=== PATIENT | male | born 1965 | race Caucasian/White ===

== ENCOUNTER 2017-02-10 09:46 | Inpatient (IN) | payer OTHER ==
[2017-02-10 10:45] VITALS: BMI 27.9
--- NOTE | 2017-02-10 13:34 | HP ---
COWS - Scale Resting Pulse: 1= [place] 81-100 Sweatin= Chills/Flushing Restless Observation: 3= Extraneous Movement Pupil Size: 2= Moderately Dilated Bone or Joint Aches: 4=Acute Joint/Muscle Pain Runny Nose/ Eye Tearin= Runny Nose/Eyes GI Upset > 30mins: 2= Nausea/Diarrhea Tremor Observation: 2= Slight Tremor Visible Yawning Observation: 2= >3x During Session Anxiety or Irritability: 2=Irritable/Anxious Goose Flesh Skin: 0=Smooth Skin COWS Score: 21 CIWA Score - CIWA Score Nausea/Vomitin-Int. Nausea w/Dry Heave Muscle Tremors: 4-Moderate,w/Arms Extend Anxiety: 4-Mod. Anxious/Guarded Agitation: 4-Moderately Restless Paroxysmal Sweats: 1-Minimal Palms Moist Orientation: 0-Oriented Tacttile Disturbances: 3-Moderate Itch/Numb/Burn Auditory Disturbances: 0-None Visual Disturbances: 0-None Headache: 1-Very Mild CIWA-Ar Total Score: 21 Admission [facility] - HPI Chief Complaint: DETOX TX FOR HEROIN AND ALCOHOL DEPENDENCE Allergies/Adverse Reactions: Allergies Allergy/AdvReac Type Severity Reaction Status Date / Time Penicillins Allergy unknown Verified 02/10/17 12:43 History of Present Illness: 51 Y/O H/M WITH A HX OF HEROIN AND ALCOHOL DEPENDENCE SEEKING DETOX TX. PT HAS MULTIPLE TX EPISODES WITH LONGEST PERIOD OF SOBRIETY OF 3 YRS WHILE IN RESIDENTIAL. OTHERWISE UNABLE TO STAY SOBER. Exam Limitations: No Limitations - Ebola screening Have you traveled outside of the country in the last 21 days: No Have you had contact with anyone from an Ebola affected area: No Have you been sick,other than usual withdrawal symptoms: No Do you have a fever: No - Review of Systems Constitutional: Chills, Loss of Appetite, Night Sweats, Changes in sleep, Unintentional Wgt. Loss EENT: reports: Blurred Vision, Tearing, Nose Congestion, Dental Problems ( MISSING TEETH) Respiratory: reports: No Symptoms reported GI: reports: Constipated, Diarrhea, Nausea, Poor Appetite, Poor Fluid Intake, Vomiting, Abdominal cramping : reports: Frequency Musculoskeletal: reports: Back Pain, Joint Pain, Muscle Pain Integumentary: reports: Other (DRY SKIN AROUND BUTTOCKS) Neuro: reports: Headache, Seizure, Tingling, Tremors, Unsteady Gait, Dizziness Endocrine: reports: No Symptoms Reported Hematology: reports: Anemia Psychiatric: reports: Orientated x3, Anxious, Depressed Other Systems: Reviewed and Negative Patient History - Patient Medical History Hx Anemia: Yes (NO CURRENT TX) Hx Asthma: No Hx Chronic Obstructive Pulmonary Disease (COPD): No Hx Cardiac Disorders: Yes (CAD with defribillator in 01/26) Hx Hypertension: Yes (ON MED) Hx Hypercholesterolemia: Yes (TAKES SIMVASTATIN 20 MG) Hx Pacemaker: Yes (DEFIBRILLATOR IMPLANT LEFT CHEST WALL) HX Cerebrovascular Accident: No Hx Seizures: Yes (etoh related seizures last 10/28) Hx Diabetes: Yes (ON MED) Hx Gastrointestinal Disorders: Yes (GERD) Hx Genitourinary Disorders: No Hx Sexually Transmitted Disorders: No Hx Renal Disease (ESRD): No Hx Thyroid Disease: No Hx Human Immunodeficiency Virus (HIV): No (NEGATIVE HX) Hx Hepatitis C: No Hx Depression: Yes (NOT CURRENTLY ON MED) Hx Suicide Attempt: Yes (Tried to overdose in 1999) Hx Bipolar Disorder: Yes (AND ANXIETY AND PTSD) Hx Schizophrenia: No - Patient Surgical History Past Surgical History: Yes Hx Neurologic Surgery: No Hx Cataract Extraction: No Hx Cardiac Surgery: Yes (DEFRIBRILLATOR IN 01/26) Hx Lung Surgery: No Hx Breast Surgery: No Hx Breast Biopsy: No Hx Abdominal Surgery: Yes (left inguinal hernia repair in 2004) Hx Appendectomy: No Hx Cholecystectomy: No Hx Genitourinary Surgery: No Hx Section: No Hx Orthopedic Surgery: No Other Surgical History: Angiogram in 05/23 that was negative; FOR CARPAL TUNNEL SYNDROME IN 2013 Anesthesia Reaction: No - PPD History Previous Implant?: Yes Documented Results: Negative w/o proof Implanted On Prior [facility] Admission?: Yes Date: 04/20/15 Results: 0 MM PPD to be Administered?: Yes - Reproductive History Patient is a Female of Child Bearing Age (11 -55 yrs old): No (MALE) - Smoking Cessation Smoking history: Former smoker Have you smoked in the past 12 months: No If you are a former smoker, when did you quit?: 2004 Hx Chewing Tobacco Use: No Initiated information on smoking cessation: No - Substance & Tx. History Hx Alcohol Use: Yes (VODKA) Hx Substance Use: Yes (HEROIN) Substance Use Type: Alcohol, Heroin Hx Substance Use Treatment: Yes ([facility]) - Substances Abused Heroin Route: Inhalation Frequency: Daily Amount used: 3 BAGS Age of first use: 48 Date of Last Use: 02/09/17 Alcohol Route: Oral Frequency: Daily Amount used: 2-3 PINTS VODKA Age of first use: 11 Date of Last Use: 02/10/17 Family Disease History - Family Disease History Family Disease History: Heart Disease: Father (ON HD, HAD CVA AND ), Mother (COPD), Respiratory: Mother, Other: Mother Admission Physical Exam [facility] - Vital Signs Vital Signs: Vital Signs - 24 hr 02/10/17 10:29 Temperature 98.7 F Pulse Rate 100 H Respiratory 20 Rate Blood Pressure 150/101 - Physical General Appearance: Yes: Moderate Distress, Irritable, Anxious HEENTM: Yes: EOMI, Normocephalic, DOMINIK, Pharynx Normal, Nasal Congestion, Rhinorrhea Respiratory: Yes: Chest Non-Tender, Lungs Clear, Normal Breath Sounds, No Respiratory Distress Neck: Yes: Supple, Trachea in good position Breast: Yes: Breast Exam Deferred Cardiology: Yes: Regular Rhythm, Regular Rate, S1, S2 Abdominal: Yes: Normal Bowel Sounds, Non Tender, Soft Genitourinary: Yes: Other (N/C) Back: Yes: Within Normal Limits Musculoskeletal: Yes: full range of Motion, Gait Steady Extremities: Yes: Normal Range of Motion, Non-Tender Neurological: Yes: manager gift II-XII NML intact, Fully Oriented, Alert Integumentary: Yes: Dry, Warm Lymphatic: Yes: Within Normal Limits - Diagnostic (1) Alcohol dependence with uncomplicated withdrawal Current Visit: Yes Status: Acute (2) Cocaine dependence Current Visit: No Status: Inactive (3) Essential hypertension Current Visit: Yes Status: Chronic (4) Type 2 diabetes mellitus Current Visit: Yes Status: Chronic Qualifiers: Diabetes mellitus complication status: without complication (5) Opioid dependence with withdrawal Current Visit: Yes Status: Acute (6) History of anemia Current Visit: Yes Status: Suspected (7) Hx of coronary artery disease Current Visit: Yes Status: Chronic (8) History of implantable cardiac defibrillator (ICD) Current Visit: Yes Status: Chronic Comment: LEFT CHEST WALL (9) History of seizure Current Visit: Yes Status: Suspected (10) Hx of gastroesophageal reflux (GERD) Current Visit: Yes Status: Chronic Cleared for Admission [facility] - Detox or Rehab [facility] Level of Care: Medically Managed Detox Regimen/Protocol: Methadone/Librium [facility] Breath Alcohol Content Breath Alcohol Content: 0.063 Urine Drug Screen - Results Drug Screen Negative: No Urine Drug Screen Results: OPI-Opiates
[2017-02-10] MEDS ORDERED: guaiFENesin/D-METHORPHAN HB 10 ML UNIT-DOSE CUPS PO PRN (13:47)
[2017-02-10] MEDS ORDERED: MAG HYDROX/AL HYDROX/SIMETH 30 ML UNIT-DOSE CUP PO PRN (13:47)
[2017-02-10] MEDS ORDERED: hydrOXYzine PAMOATE 25 MG CAPSULE (FP) PO PRN (13:47)
[2017-02-10] MEDS ORDERED: MENTHOL/PHENOL 1 EACH UD MM PRN (13:47)
[2017-02-10] MEDS ORDERED: MAGNESIUM CITRATE 300 ML BOTTLE PO PRN (13:47)
[2017-02-10] MEDS ORDERED: chlordiazePOXIDE HCL 25 MG CAPSULE PO PRN (13:47)
[2017-02-10] MEDS ORDERED: LOPERAMIDE HCL 2 MG CAPSULE PO PRN (13:47)
[2017-02-10] MEDS ORDERED: IBUPROFEN 400 MG TABLET (FP) PO PRN (13:47)
[2017-02-10] MEDS ORDERED: MAGNESIUM HYDROX 2400MG/30ML ORAL SUSPENSION 30 ML CUP PO PRN (13:47)
[2017-02-10] MEDS ORDERED: P-EPHED 60MG/TRIPROLIDI 2.5MG TABLET PO PRN (13:47)
[2017-02-10] MEDS ORDERED: ACETAMINOPHEN 325 MG TABLET (FP) PO PRN (13:47)
[2017-02-10] MEDS ORDERED: METHADONE HCL 10 MG TABLET (FOR DETOX USE ONLY) PO ONE ×2 (14:30→23:00)
[2017-02-10] MEDS ORDERED: chlordiazePOXIDE HCL 25 MG CAPSULE PO ONE (14:30)
[2017-02-10 14:39] LABS: HIV 1 & 2 AB NEGATIVE; HIV 1 AGp24 NEGATIVE
[2017-02-10] MEDS: LISINOPRIL 20 MG TABLET (FP) PO SCH (14:41)
[2017-02-10] MEDS: ASPIRIN 81 MG CHEWABLE TABLETS PO SCH (14:41)
[2017-02-10] MEDS: PANTOPRAZOLE 40 MG TABLET (FP) PO SCH (14:41)
[2017-02-10] MEDS: HYDROCHLOROTHIAZIDE 25 MG TABLET (FP) PO SCH (15:05)
[2017-02-10] MEDS ORDERED: INSULIN (NOVOLOG) ASPART 100 UNITS/ML 10ML VIAL ONE (16:47)
[2017-02-10 16:51] LABS: URINE APPEARANCE SLCLOUDY; URINE BILIRUBIN NEGATIVE (NEGATIVE); URINE BLOOD NEGATIVE (NEGATIVE); URINE COLOR LTYELLOW; URINE GLUCOSE (UA) 3+ (NEGATIVE); URINE KETONE NEGATIVE (NEGATIVE); URINE LEUK ESTERASE NEGATIVE (NEGATIVE); URINE NITRITE NEGATIVE (NEGATIVE); URINE PROTEIN NEGATIVE (NEGATIVE); URINE UROBILINOGEN NEGATIVE E.U./dl (0.2-1.0)
[2017-02-10] MEDS: chlordiazePOXIDE HCL 25 MG CAPSULE PO SCH ×2 (17:03→22:21)
[2017-02-10] MEDS: INSULIN SLIDING SCALE (NOVOLOG) 1 VIAL SQ SCH (17:03)
[2017-02-10] MEDS: metFORMIN HCL 500 MG TABLET (FP) PO SCH (17:03)
[2017-02-10] MEDS: ATORVASTATIN CA 40 MG TABLET (FP) PO SCH (22:21)
[2017-02-10] MEDS: THIAMINE HCL 100 MG TABLET (FP) PO SCH (22:21)
[2017-02-10] MEDS: diphenhydrAMINE HCL 50 MG CAPSULE PO PRN (22:22)
[2017-02-10] MEDS: VITAMINS A AND D TOPICAL OINTMENT 60 GM TUBE TP SCH (22:22)
[2017-02-11] MEDS: chlordiazePOXIDE HCL 25 MG CAPSULE PO SCH ×4 (05:21→22:23)
[2017-02-11] MEDS ORDERED: INSULIN (NOVOLOG) ASPART 100 UNITS/ML 10ML VIAL ONE (07:41)
[2017-02-11] MEDS: metFORMIN HCL 500 MG TABLET (FP) PO SCH ×2 (07:55→16:30)
[2017-02-11] MEDS: glipiZIDE-XL 10 MG TAB.ER.24 (FP) PO SCH (07:56)
[2017-02-11] MEDS: INSULIN SLIDING SCALE (NOVOLOG) 1 VIAL SQ SCH ×2 (07:56→17:35)
[2017-02-11] MEDS ORDERED: METHADONE HCL 10 MG TABLET (FOR DETOX USE ONLY) PO SCH (10:00)
[2017-02-11] MEDS: HYDROCHLOROTHIAZIDE 25 MG TABLET (FP) PO SCH (10:16)
[2017-02-11] MEDS: LISINOPRIL 20 MG TABLET (FP) PO SCH (10:17)
[2017-02-11] MEDS: PANTOPRAZOLE 40 MG TABLET (FP) PO SCH (10:17)
[2017-02-11] MEDS: PRENATAL VITAMINS W/ FOLIC ACID TABLET (FP) PO SCH (10:17)
[2017-02-11] MEDS: VITAMINS A AND D TOPICAL OINTMENT 60 GM TUBE TP SCH ×2 (10:17→22:22)
[2017-02-11] MEDS: ASPIRIN 81 MG CHEWABLE TABLETS PO SCH (10:17)
[2017-02-11 10:23] LABS: MCH 29.2 pg (25.7-33.7); MCHC 33.3 g/dl (32.0-35.9); MEAN CELL VOLUME 87.9 fl (80-96); MEAN PLT VOLUME 7.8 fl (7.5-11.1); PLATELET COUNT 189 K/MM3 (134-434); RDW 17.6 % (11.9-15.9); WHITE BLOOD COUNT 6.9 K/mm3 (4.0-10.0)
[2017-02-11 11:11] LABS: ALBUMIN 3.6 g/dl (3.4-5.0); ALK PHOS 77 U/L (45-117); ANION GAP 14 (8-16); BILIRUBIN,TOTAL 0.4 mg/dL (0.2-1.0); CALCIUM 8.4 mg/dL (8.5-10.1); CO2 23 mmol/L (21-32); CREATININE 1.1 mg/dL (0.7-1.3); GLUCOSE,RANDOM 227 mg/dL (74-106); SGOT/AST 27 U/L (15-37); SGPT/ALT 30 U/L (12-78); TOT PROT 7.1 g/dl (6.4-8.2)
--- NOTE | 2017-02-11 12:30 | EKG ---
Test Reason : Blood Pressure : / mmHG Vent. Rate : 088 BPM Atrial Rate : 088 BPM P-R Int : 116 ms QRS Dur : 080 ms QT Int : 380 ms P-R-T Axes : 071 047 019 degrees QTc Int : 459 ms NORMAL SINUS RHYTHM POSSIBLE LEFT ATRIAL ENLARGEMENT LEFT VENTRICULAR HYPERTROPHY ABNORMAL ECG NO PREVIOUS ECGS AVAILABLE Confirmed by ALIZA RESENDIZ MD ([id number]) on 02/11/2017 12:29:59 PM Referred By: Confirmed By:ALIZA RESENDIZ MD
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
--- NOTE | 2017-02-11 15:42 | PN ---
S CIWA - CIWA Score Nausea/Vomitin Muscle Tremors: 4-Moderate,w/Arms Extend Anxiety: 2 Agitation: 1-Slight > Activity Paroxysmal Sweats: 3 Orientation: 0-Oriented Tacttile Disturbances: 2-Mild Itch/Numbness/Burn Auditory Disturbances: 3-Moderate Harsh/Frighten Visual Disturbances: 0-None Headache: 3-Moderate CIWA-Ar Total Score: 21 BHS COWS - Scale Resting Pulse: 1= [place] 81-100 Sweatin= Chills/Flushing Restless Observation: 0= Sits Still Pupil Size: 0= Normal to Room Light Bone or Joint Aches: 2= Severe Diffuse Aches Runny Nose/ Eye Tearin= Runny Nose/Eyes GI Upset > 30mins: 2= Nausea/Diarrhea Tremor Observation of Outstretched Hands: 2= Slight Tremor Visible Yawning Observation: 1= 1-2x During Session Anxiety or Irritability: 2=Irritable/Anxious Goose Flesh Skin: 0=Smooth Skin COWS Score: 13 S Progress Note (SOAP) Subjective: Nausea, Diarrhea, H/A, Body Aches, Sweating, Interrupted sleep. Objective: PT. A & O X 3, OBSERVED AMBULATING ON UNIT. 02/11/17 15:39 Vital Signs Temperature 96.9 F L 02/11/17 10:59 Pulse Rate 81 02/11/17 10:59 Respiratory Rate 20 02/11/17 10:59 Blood Pressure 123/79 02/11/17 10:59 O2 Sat by Pulse Oximetry (%) Laboratory Last Values WBC 6.9 K/mm3 (4.0-10.0) 02/11/17 06:00 RBC 4.40 M/mm3 (4.00-5.60) 02/11/17 06:00 Hgb 12.9 GM/dL (11.7-16.9) D 02/11/17 06:00 Hct 38.7 % (35.4-49) 02/11/17 06:00 MCV 87.9 fl (80-96) 02/11/17 06:00 MCHC 33.3 g/dl (32.0-35.9) 02/11/17 06:00 RDW 17.6 % (11.9-15.9) H D 02/11/17 06:00 Plt Count 189 K/MM3 (134-434) D 02/11/17 06:00 MPV 7.8 fl (7.5-11.1) 02/11/17 06:00 Sodium 137 mmol/L (136-145) 02/11/17 06:00 Potassium 4.1 mmol/L (3.5-5.1) 02/11/17 06:00 Chloride 100 mmol/L (98-107) 02/11/17 06:00 Carbon Dioxide 23 mmol/L (21-32) 02/11/17 06:00 Anion Gap 14 (8-16) 02/11/17 06:00 BUN 13 mg/dL (7-18) D 02/11/17 06:00 Creatinine 1.1 mg/dL (0.7-1.3) 02/11/17 06:00 Creat Clearance w eGFR > 60 (>60) 02/11/17 06:00 POC Glucometer 213 UNITS (()) 02/11/17 05:20 Random Glucose 227 mg/dL (74-106) H D 02/11/17 06:00 Calcium 8.4 mg/dL (8.5-10.1) L 02/11/17 06:00 Total Bilirubin 0.4 mg/dL (0.2-1.0) D 02/11/17 06:00 AST 27 U/L (15-37) D 02/11/17 06:00 ALT 30 U/L (12-78) D 02/11/17 06:00 Alkaline Phosphatase 77 U/L (45-117) 02/11/17 06:00 Total Protein 7.1 g/dl (6.4-8.2) 02/11/17 06:00 Albumin 3.6 g/dl (3.4-5.0) 02/11/17 06:00 Urine Color Ltyellow 02/10/17 13:00 Urine Appearance Slcloudy 02/10/17 13:00 Urine pH 5.0 (5.0-8.0) 02/10/17 13:00 Ur Specific [place] 1.022 (1.001-1.035) 02/10/17 13:00 Urine Protein Negative (NEGATIVE) 02/10/17 13:00 Urine Glucose (UA) 3+ (NEGATIVE) H 02/10/17 13:00 Urine Ketones Negative (NEGATIVE) 02/10/17 13:00 Urine Blood Negative (NEGATIVE) 02/10/17 13:00 Urine Nitrite Negative (NEGATIVE) 02/10/17 13:00 Urine Bilirubin Negative (NEGATIVE) 02/10/17 13:00 Urine Urobilinogen Negative E.U./dl (0.2-1.0) 02/10/17 13:00 Ur Leukocyte Esterase Negative (NEGATIVE) 02/10/17 13:00 HIV 1&2 Antibody Screen Negative 02/10/17 12:55 HIV P24 Antigen Negative 02/10/17 12:55 LABS NOTED. Assessment: 02/11/17 15:40 WITHDRAWAL SYMPTOMS. Plan: CONTINUE DETOX. ADVISED PATIENT TO FOLLOW-UP WITH BATH ATTENDANT / REHAB MEDICAL PROVIDER AFTER DISCHARGER FROM DETOX FOR GENERAL MEDICAL ASSESSMENT AND FOR ABNORMAL ADMISSION LAB VALUES.
[2017-02-11] MEDS ORDERED: ATORVASTATIN CA 20 MG TABLET (FP) ONE (21:01)
[2017-02-11] MEDS: THIAMINE HCL 100 MG TABLET (FP) PO SCH (22:22)
[2017-02-11] MEDS: ZOLPIDEM TARTRATE 5 MG TABLET PO PRN (22:23)
[2017-02-11] MEDS: ATORVASTATIN CA 40 MG TABLET (FP) PO SCH (22:23)
[2017-02-12] MEDS: chlordiazePOXIDE HCL 25 MG CAPSULE PO SCH ×2 (05:34→10:19)
[2017-02-12] MEDS: metFORMIN HCL 500 MG TABLET (FP) PO SCH ×2 (06:55→17:29)
[2017-02-12] MEDS: glipiZIDE-XL 10 MG TAB.ER.24 (FP) PO SCH (06:56)
[2017-02-12] MEDS: INSULIN SLIDING SCALE (NOVOLOG) 1 VIAL SQ SCH ×2 (06:57→17:29)
[2017-02-12] MEDS ORDERED: INSULIN (NOVOLOG) ASPART 100 UNITS/ML 10ML VIAL ONE (07:23)
[2017-02-12] MEDS ORDERED: SERTRALINE HCL 50 MG TABLET (FP) PO SCH (10:00)
[2017-02-12] MEDS: PANTOPRAZOLE 40 MG TABLET (FP) PO SCH (10:18)
[2017-02-12] MEDS: PRENATAL VITAMINS W/ FOLIC ACID TABLET (FP) PO SCH (10:18)
[2017-02-12] MEDS: METHADONE HCL 5 MG TABLET (FOR DETOX USE ONLY) PO SCH (10:18)
[2017-02-12] MEDS: ASPIRIN 81 MG CHEWABLE TABLETS PO SCH (10:18)
[2017-02-12] MEDS: LISINOPRIL 20 MG TABLET (FP) PO SCH (10:18)
[2017-02-12] MEDS: VITAMINS A AND D TOPICAL OINTMENT 60 GM TUBE TP SCH ×2 (10:19→22:10)
[2017-02-12] MEDS: HYDROCHLOROTHIAZIDE 25 MG TABLET (FP) PO SCH (10:19)
[2017-02-12] MEDS: SERTRALINE HCL 25 MG TABLET (FP) PO SCH (10:19)
--- NOTE | 2017-02-12 16:24 | PN ---
S CIWA - CIWA Score Nausea/Vomitin Muscle Tremors: 4-Moderate,w/Arms Extend Anxiety: 4-Mod. Anxious/Guarded Agitation: 4-Moderately Restless Paroxysmal Sweats: No Perspiration Orientation: 0-Oriented Tacttile Disturbances: 0-None Auditory Disturbances: 0-None Visual Disturbances: 0-None Headache: 3-Moderate CIWA-Ar Total Score: 18 BHS COWS - Scale Resting Pulse: 1= [place] 81-100 Sweatin=Flushed/Facial Moisture Restless Observation: 3= Extraneous Movement Pupil Size: 0= Normal to Room Light Bone or Joint Aches: 2= Severe Diffuse Aches Runny Nose/ Eye Tearin= Runny Nose/Eyes GI Upset > 30mins: 3= Vomiting/Diarrhea Tremor Observation of Outstretched Hands: 2= Slight Tremor Visible Yawning Observation: 0= None Anxiety or Irritability: 2=Irritable/Anxious Goose Flesh Skin: 0=Smooth Skin COWS Score: 17 S Progress Note (SOAP) Subjective: Nausea, diarrhea, sweating, tremor, interrupted sleep Objective: 02/12/17 16:22 Last Vital Signs Temp Pulse Resp BP Pulse Ox 96.8 F L 83 20 110/72 02/12/17 14:03 02/12/17 14:03 02/12/17 14:03 02/12/17 14:03 Laboratory Tests 02/10/17 02/10/17 02/10/17 12:55 13:00 13:00 WBC RBC Hgb Hct MCV MCHC RDW Plt Count MPV Sodium Potassium Chloride Carbon Dioxide Anion Gap BUN Creatinine Creat Clearance w eGFR POC Glucometer 204 Random Glucose Calcium Total Bilirubin AST ALT Alkaline Phosphatase Total Protein Albumin Urine Color Ltyellow Urine Appearance Slcloudy Urine pH 5.0 Ur Specific [place] 1.022 Urine Protein Negative Urine Glucose (UA) 3+ H Urine Ketones Negative Urine Blood Negative Urine Nitrite Negative Urine Bilirubin Negative Urine Urobilinogen Negative Ur Leukocyte Esterase Negative RPR Titer HIV 1&2 Antibody Screen Negative HIV P24 Antigen Negative 02/10/17 02/11/17 02/11/17 16:34 05:20 06:00 WBC 6.9 RBC 4.40 Hgb 12.9 D Hct 38.7 MCV 87.9 MCHC 33.3 RDW 17.6 H D Plt Count 189 D MPV 7.8 Sodium Potassium Chloride Carbon Dioxide Anion Gap BUN Creatinine Creat Clearance w eGFR POC Glucometer 316 213 Random Glucose Calcium Total Bilirubin AST ALT Alkaline Phosphatase Total Protein Albumin Urine Color Urine Appearance Urine pH Ur Specific [place] Urine Protein Urine Glucose (UA) Urine Ketones Urine Blood Urine Nitrite Urine Bilirubin Urine Urobilinogen Ur Leukocyte Esterase RPR Titer HIV 1&2 Antibody Screen HIV P24 Antigen 02/11/17 02/11/17 02/11/17 06:00 06:00 16:21 WBC RBC Hgb Hct MCV MCHC RDW Plt Count MPV Sodium 137 Potassium 4.1 Chloride 100 Carbon Dioxide 23 Anion Gap 14 BUN 13 D Creatinine 1.1 Creat Clearance w eGFR > 60 POC Glucometer 229 Random Glucose 227 H D Calcium 8.4 L Total Bilirubin 0.4 D AST 27 D ALT 30 D Alkaline Phosphatase 77 Total Protein 7.1 Albumin 3.6 Urine Color Urine Appearance Urine pH Ur Specific [place] Urine Protein Urine Glucose (UA) Urine Ketones Urine Blood Urine Nitrite Urine Bilirubin Urine Urobilinogen Ur Leukocyte Esterase RPR Titer Nonreactive HIV 1&2 Antibody Screen HIV P24 Antigen 02/12/17 05:33 WBC RBC Hgb Hct MCV MCHC RDW Plt Count MPV Sodium Potassium Chloride Carbon Dioxide Anion Gap BUN Creatinine Creat Clearance w eGFR POC Glucometer 302 Random Glucose Calcium Total Bilirubin AST ALT Alkaline Phosphatase Total Protein Albumin Urine Color Urine Appearance Urine pH Ur Specific [place] Urine Protein Urine Glucose (UA) Urine Ketones Urine Blood Urine Nitrite Urine Bilirubin Urine Urobilinogen Ur Leukocyte Esterase RPR Titer HIV 1&2 Antibody Screen HIV P24 Antigen Labs noted Assessment: 02/12/17 16:23 Withdrawal symptoms Plan: Continue detox
[2017-02-12] MEDS: chlordiazePOXIDE 5 MG CAPSULE PO SCH ×2 (17:29→22:10)
[2017-02-12] MEDS ORDERED: ATORVASTATIN CA 20 MG TABLET (FP) ONE (20:24)
[2017-02-12] MEDS: ATORVASTATIN CA 40 MG TABLET (FP) PO SCH (22:10)
[2017-02-12] MEDS: THIAMINE HCL 100 MG TABLET (FP) PO SCH (22:10)
[2017-02-12] MEDS: ZOLPIDEM TARTRATE 5 MG TABLET PO PRN (22:12)
[2017-02-13] MEDS: chlordiazePOXIDE 5 MG CAPSULE PO SCH ×2 (06:07→10:25)
[2017-02-13] MEDS: metFORMIN HCL 500 MG TABLET (FP) PO SCH ×2 (07:36→17:11)
[2017-02-13] MEDS: INSULIN SLIDING SCALE (NOVOLOG) 1 VIAL SQ SCH ×2 (07:36→17:14)
[2017-02-13] MEDS: glipiZIDE-XL 10 MG TAB.ER.24 (FP) PO SCH (07:36)
[2017-02-13] MEDS ORDERED: INSULIN (NOVOLOG) ASPART 100 UNITS/ML 10ML VIAL ONE ×2 (07:40→16:52)
[2017-02-13] MEDS: SERTRALINE HCL 25 MG TABLET (FP) PO SCH (10:25)
[2017-02-13] MEDS: HYDROCHLOROTHIAZIDE 25 MG TABLET (FP) PO SCH (10:25)
[2017-02-13] MEDS: PANTOPRAZOLE 40 MG TABLET (FP) PO SCH (10:25)
[2017-02-13] MEDS: PRENATAL VITAMINS W/ FOLIC ACID TABLET (FP) PO SCH (10:25)
[2017-02-13] MEDS: VITAMINS A AND D TOPICAL OINTMENT 60 GM TUBE TP SCH ×2 (10:26→22:21)
[2017-02-13] MEDS: LISINOPRIL 20 MG TABLET (FP) PO SCH (10:26)
[2017-02-13] MEDS: METHADONE HCL 5 MG TABLET (FOR DETOX USE ONLY) PO SCH (10:26)
[2017-02-13] MEDS: ASPIRIN 81 MG CHEWABLE TABLETS PO SCH (12:27)
--- NOTE | 2017-02-13 13:32 | PN ---
BHS Progress Note (SOAP) Subjective: Sweating,interrupted sleep,restless Objective: 02/13/17 13:31 Vital Signs - 8 hr 02/13/17 02/13/17 02/13/17 06:33 09:53 13:03 Temperature 96.9 F L 95.7 F L 97 F L Pulse Rate 83 84 82 Respiratory 18 20 18 Rate Blood Pressure 112/73 113/74 105/85 Laboratory Tests 02/10/17 02/10/17 02/10/17 12:55 13:00 13:00 WBC RBC Hgb Hct MCV MCHC RDW Plt Count MPV Sodium Potassium Chloride Carbon Dioxide Anion Gap BUN Creatinine Creat Clearance w eGFR POC Glucometer 204 Random Glucose Calcium Total Bilirubin AST ALT Alkaline Phosphatase Total Protein Albumin Urine Color Ltyellow Urine Appearance Slcloudy Urine pH 5.0 Ur Specific [place] 1.022 Urine Protein Negative Urine Glucose (UA) 3+ H Urine Ketones Negative Urine Blood Negative Urine Nitrite Negative Urine Bilirubin Negative Urine Urobilinogen Negative Ur Leukocyte Esterase Negative RPR Titer HIV 1&2 Antibody Screen Negative HIV P24 Antigen Negative 02/10/17 02/11/17 02/11/17 16:34 05:20 06:00 WBC 6.9 RBC 4.40 Hgb 12.9 D Hct 38.7 MCV 87.9 MCHC 33.3 RDW 17.6 H D Plt Count 189 D MPV 7.8 Sodium Potassium Chloride Carbon Dioxide Anion Gap BUN Creatinine Creat Clearance w eGFR POC Glucometer 316 213 Random Glucose Calcium Total Bilirubin AST ALT Alkaline Phosphatase Total Protein Albumin Urine Color Urine Appearance Urine pH Ur Specific [place] Urine Protein Urine Glucose (UA) Urine Ketones Urine Blood Urine Nitrite Urine Bilirubin Urine Urobilinogen Ur Leukocyte Esterase RPR Titer HIV 1&2 Antibody Screen HIV P24 Antigen 02/11/17 02/11/17 02/11/17 06:00 06:00 16:21 WBC RBC Hgb Hct MCV MCHC RDW Plt Count MPV Sodium 137 Potassium 4.1 Chloride 100 Carbon Dioxide 23 Anion Gap 14 BUN 13 D Creatinine 1.1 Creat Clearance w eGFR > 60 POC Glucometer 229 Random Glucose 227 H D Calcium 8.4 L Total Bilirubin 0.4 D AST 27 D ALT 30 D Alkaline Phosphatase 77 Total Protein 7.1 Albumin 3.6 Urine Color Urine Appearance Urine pH Ur Specific [place] Urine Protein Urine Glucose (UA) Urine Ketones Urine Blood Urine Nitrite Urine Bilirubin Urine Urobilinogen Ur Leukocyte Esterase RPR Titer Nonreactive HIV 1&2 Antibody Screen HIV P24 Antigen 02/12/17 02/12/17 02/13/17 05:33 16:23 06:08 WBC RBC Hgb Hct MCV MCHC RDW Plt Count MPV Sodium Potassium Chloride Carbon Dioxide Anion Gap BUN Creatinine Creat Clearance w eGFR POC Glucometer 302 171 238 Random Glucose Calcium Total Bilirubin AST ALT Alkaline Phosphatase Total Protein Albumin Urine Color Urine Appearance Urine pH Ur Specific [place] Urine Protein Urine Glucose (UA) Urine Ketones Urine Blood Urine Nitrite Urine Bilirubin Urine Urobilinogen Ur Leukocyte Esterase RPR Titer HIV 1&2 Antibody Screen HIV P24 Antigen labs noted Assessment: 02/13/17 13:31 Withdrawal sx. Plan: Continue detox
[2017-02-13] MEDS: chlordiazePOXIDE HCL 10 MG CAPSULE PO SCH ×2 (17:11→22:20)
[2017-02-13] MEDS: ATORVASTATIN CA 40 MG TABLET (FP) PO SCH (22:20)
[2017-02-13] MEDS: THIAMINE HCL 100 MG TABLET (FP) PO SCH (22:20)
[2017-02-13] MEDS: diphenhydrAMINE HCL 50 MG CAPSULE PO PRN (22:21)
[2017-02-14] MEDS: chlordiazePOXIDE HCL 10 MG CAPSULE PO SCH ×2 (05:44→10:31)
[2017-02-14] MEDS: metFORMIN HCL 500 MG TABLET (FP) PO SCH ×2 (06:23→16:30)
[2017-02-14] MEDS: INSULIN SLIDING SCALE (NOVOLOG) 1 VIAL SQ SCH ×2 (06:25→16:30)
[2017-02-14] MEDS: glipiZIDE-XL 10 MG TAB.ER.24 (FP) PO SCH (07:47)
[2017-02-14] MEDS ORDERED: METHADONE HCL 10 MG TABLET (FOR DETOX USE ONLY) PO SCH (10:00)
[2017-02-14] MEDS: SERTRALINE HCL 25 MG TABLET (FP) PO SCH (10:31)
[2017-02-14] MEDS: LISINOPRIL 20 MG TABLET (FP) PO SCH (10:31)
[2017-02-14] MEDS: HYDROCHLOROTHIAZIDE 25 MG TABLET (FP) PO SCH (10:31)
[2017-02-14] MEDS: ASPIRIN 81 MG CHEWABLE TABLETS PO SCH (10:31)
[2017-02-14] MEDS: PRENATAL VITAMINS W/ FOLIC ACID TABLET (FP) PO SCH (10:31)
[2017-02-14] MEDS: VITAMINS A AND D TOPICAL OINTMENT 60 GM TUBE TP SCH ×2 (10:32→23:06)
[2017-02-14] MEDS: PANTOPRAZOLE 40 MG TABLET (FP) PO SCH (10:32)
--- NOTE | 2017-02-14 10:41 | PN ---
BHS Progress Note (SOAP) Subjective: DECREASED ANXIETY,TREMORS,IRRITABILITY. Objective: 02/14/17 10:41 Vital Signs 02/14/17 02/14/17 02/14/17 03:35 06:20 10:06 Temperature 98.0 F 98.2 F Pulse Rate 91 H 76 Respiratory 18 16 18 Rate Blood Pressure 96/65 106/68 Laboratory Last Values WBC 6.9 K/mm3 (4.0-10.0) 02/11/17 06:00 RBC 4.40 M/mm3 (4.00-5.60) 02/11/17 06:00 Hgb 12.9 GM/dL (11.7-16.9) D 02/11/17 06:00 Hct 38.7 % (35.4-49) 02/11/17 06:00 MCV 87.9 fl (80-96) 02/11/17 06:00 MCHC 33.3 g/dl (32.0-35.9) 02/11/17 06:00 RDW 17.6 % (11.9-15.9) H D 02/11/17 06:00 Plt Count 189 K/MM3 (134-434) D 02/11/17 06:00 MPV 7.8 fl (7.5-11.1) 02/11/17 06:00 Sodium 137 mmol/L (136-145) 02/11/17 06:00 Potassium 4.1 mmol/L (3.5-5.1) 02/11/17 06:00 Chloride 100 mmol/L (98-107) 02/11/17 06:00 Carbon Dioxide 23 mmol/L (21-32) 02/11/17 06:00 Anion Gap 14 (8-16) 02/11/17 06:00 BUN 13 mg/dL (7-18) D 02/11/17 06:00 Creatinine 1.1 mg/dL (0.7-1.3) 02/11/17 06:00 Creat Clearance w eGFR > 60 (>60) 02/11/17 06:00 POC Glucometer 185 UNITS (()) 02/14/17 05:43 Random Glucose 227 mg/dL (74-106) H D 02/11/17 06:00 Calcium 8.4 mg/dL (8.5-10.1) L 02/11/17 06:00 Total Bilirubin 0.4 mg/dL (0.2-1.0) D 02/11/17 06:00 AST 27 U/L (15-37) D 02/11/17 06:00 ALT 30 U/L (12-78) D 02/11/17 06:00 Alkaline Phosphatase 77 U/L (45-117) 02/11/17 06:00 Total Protein 7.1 g/dl (6.4-8.2) 02/11/17 06:00 Albumin 3.6 g/dl (3.4-5.0) 02/11/17 06:00 Urine Color Ltyellow 02/10/17 13:00 Urine Appearance Slcloudy 02/10/17 13:00 Urine pH 5.0 (5.0-8.0) 02/10/17 13:00 Ur Specific [place] 1.022 (1.001-1.035) 02/10/17 13:00 Urine Protein Negative (NEGATIVE) 02/10/17 13:00 Urine Glucose (UA) 3+ (NEGATIVE) H 02/10/17 13:00 Urine Ketones Negative (NEGATIVE) 02/10/17 13:00 Urine Blood Negative (NEGATIVE) 02/10/17 13:00 Urine Nitrite Negative (NEGATIVE) 02/10/17 13:00 Urine Bilirubin Negative (NEGATIVE) 02/10/17 13:00 Urine Urobilinogen Negative E.U./dl (0.2-1.0) 02/10/17 13:00 Ur Leukocyte Esterase Negative (NEGATIVE) 02/10/17 13:00 RPR Titer Nonreactive (NONREACTIVE) 02/11/17 06:00 HIV 1&2 Antibody Screen Negative 02/10/17 12:55 HIV P24 Antigen Negative 02/10/17 12:55 Assessment: 02/14/17 10:41 WITHDRAWAL SX Plan: CONTINUE DETOX
[2017-02-14] MEDS ORDERED: INSULIN (NOVOLOG) ASPART 100 UNITS/ML 10ML VIAL ONE (16:50)
[2017-02-14] MEDS: THIAMINE HCL 100 MG TABLET (FP) PO SCH (22:20)
[2017-02-14] MEDS: ATORVASTATIN CA 40 MG TABLET (FP) PO SCH (22:20)
[2017-02-14] MEDS: ZOLPIDEM TARTRATE 5 MG TABLET PO PRN (22:21)
[2017-02-15] MEDS ORDERED: METHADONE HCL 5 MG TABLET (FOR DETOX USE ONLY) PO SCH (06:00)
[2017-02-15] MEDS: INSULIN SLIDING SCALE (NOVOLOG) 1 VIAL SQ SCH (07:55)
[2017-02-15] MEDS: glipiZIDE-XL 10 MG TAB.ER.24 (FP) PO SCH (07:55)
[2017-02-15] MEDS: metFORMIN HCL 500 MG TABLET (FP) PO SCH (07:55)
[2017-02-15 09:41] VITALS: BP 102/67; PULSE 86; TEMP 96.8
--- NOTE | 2017-02-15 10:23 | DS ---
[facility] Detox Discharge Summary Admission Date: 02/10/17 Discharge Date: 02/15/17 - History Present History: Alcohol Dependence, Opioid Dependence Additional Comments: ALERT O X 3. NAD. DETOX COMPLETED. Pertinent Past History: CAD S/P DEFIBRILLATOR IMPLANT ANEMIA HTN HYPERLIPIDEMIA CARPAL TUNNEL SYNDROME - Physical Exam Results Vital Signs: Vital Signs Temperature 96.8 F L 02/15/17 09:41 Pulse Rate 86 02/15/17 09:41 Respiratory Rate 18 02/15/17 09:41 Blood Pressure 102/67 02/15/17 09:41 O2 Sat by Pulse Oximetry (%) Pertinent Admission Physical Exam Findings: WITHDRAWAL SX - Treatment Hospital Course: Detox Protocol Followed, Detoxed Safely, Responded well, Discharged Condition Good, Rehab Referral Accepted Patient has Accepted a Rehab Referral to: [facility] - Medication Discharge Medications: Ambulatory Orders Quetiapine Fumarate [Seroquel -] 100 mg PO HS #30 tab 05/23/15 Hydrochlorothiazide [Hctz -] 25 mg PO DAILY #30 tablet 05/28/15 Aspirin [ASA -] 81 mg PO DAILY #30 tab.chew 09/21/15 Glipizide Xl [Glucotrol Xl -] 10 mg PO ACBK #30 tab.er.24 09/21/15 Lisinopril [Prinivil -] 40 mg PO DAILY #30 tablet 09/21/15 Metformin HCl [Glucophage -] 500 mg PO BID #60 tablet 09/21/15 Omeprazole [Prilosec (RX)] 20 mg PO DAILY #30 capsule.dr 09/21/15 Sertraline HCl [Zoloft] 25 mg PO DAILY #30 09/21/15 Trazodone HCl [Desyrel -] 50 mg PO HS #30 tablet 09/21/15 Atorvastatin Calcium 40 mg PO HS 02/10/17 Sertraline HCl [Zoloft -] 25 mg PO DAILY #30 tablet 02/11/17 - Diagnosis (1) Alcohol dependence with uncomplicated withdrawal Current Visit: Yes Status: Acute (2) Cocaine dependence Current Visit: No Status: Inactive (3) Essential hypertension Current Visit: Yes Status: Chronic (4) Type 2 diabetes mellitus Current Visit: Yes Status: Chronic Qualifiers: Diabetes mellitus complication status: without complication (5) Opioid dependence with withdrawal Current Visit: Yes Status: Acute (6) History of anemia Current Visit: Yes Status: Suspected (7) Hx of coronary artery disease Current Visit: Yes Status: Chronic (8) History of implantable cardiac defibrillator (ICD) Current Visit: Yes Status: Chronic (9) History of seizure Current Visit: Yes Status: Suspected (10) Hx of gastroesophageal reflux (GERD) Current Visit: Yes Status: Chronic - AMA Did Patient Leave Against Medical Advice: No
[2017-02-15] MEDS: ASPIRIN 81 MG CHEWABLE TABLETS PO SCH (10:26)
[2017-02-15] MEDS: PANTOPRAZOLE 40 MG TABLET (FP) PO SCH (10:26)
[2017-02-15] MEDS: PRENATAL VITAMINS W/ FOLIC ACID TABLET (FP) PO SCH (10:26)
[2017-02-15] MEDS: HYDROCHLOROTHIAZIDE 25 MG TABLET (FP) PO SCH (10:26)
[2017-02-15] MEDS: LISINOPRIL 20 MG TABLET (FP) PO SCH (10:26)
[2017-02-15] MEDS: SERTRALINE HCL 25 MG TABLET (FP) PO SCH (10:26)
[2017-02-15] MEDS: VITAMINS A AND D TOPICAL OINTMENT 60 GM TUBE TP SCH (10:26)
== END 2017-02-15 13:26 | disposition other institution (70) | DRG 773 ==
LOC: YASAS 09:46 → Y3N 13:13
PROVIDERS: ADMIT Internal Medicine; ATTEND Internal Medicine
PROC: HZ2ZZZZ Detoxification Services for Substance Abuse Treatment (ICD-10-PCS; principal; 2017-02-10)
DX: F11.23 Opioid dependence with withdrawal (principal); F10.230 Alcohol dependence with withdrawal, uncomplicated; F14.20 Cocaine dependence, uncomplicated; F43.10 Post-traumatic stress disorder, unspecified; F41.9 Anxiety disorder, unspecified; I10 Essential (primary) hypertension; I25.10 Atherosclerotic heart disease of native coronary artery without angina pectoris; E11.9 Type 2 diabetes mellitus without complications; E78.5 Hyperlipidemia, unspecified; K21.9 Gastro-esophageal reflux disease without esophagitis; G47.00 Insomnia, unspecified; Z86.2 Personal history of diseases of the blood and blood-forming organs and certain disorders involving the immune mechanism; Z86.69 Personal history of other diseases of the nervous system and sense organs; Z79.4 Long term (current) use of insulin; Z95.810 Presence of automatic (implantable) cardiac defibrillator; Z87.438 Personal history of other diseases of male genital organs; Z87.891 Personal history of nicotine dependence; Z91.5 Personal history of self-harm
CPT/HCPCS: 36415; 80053; 81003; 85027; 86593; 87389; 93005; 93010